=== PATIENT | female | born 1985 | race Caucasian/White ===

== ENCOUNTER → 2025-01-08 | Outpatient (CLI) | payer BC ==
[~2025-01-08] MED LIST: BCP'S; CYCL10 PO; DOCU100 PO; HYDACE5 PO; TRAZ50 PO; TRUVADA 200 MG1 EAC1 PO; Verotin-Gr Cap1 EACH PO
== END ==
LOC: LAB 08:33 → LAB SHORT 08:33 → PLD 08:33
DX: D39.0 Neoplasm of uncertain behavior of uterus (principal); N93.8 Other specified abnormal uterine and vaginal bleeding
CPT/HCPCS: 88305; 88312

== ENCOUNTER 2025-02-07 11:14 | Inpatient (IN) | payer BC ==
[~2025-02-07] VITALS: Ht 158 cm; Wt 78.6 kg
[2025-02-07] VITALS (20 sets, daily range): BP systolic 86–135; BP diastolic 62–87
[2025-02-07] MEDS ORDERED: Midazolam HCl 1MG / ML 2ML Vial ONE (11:15)
[2025-02-07] MEDS ORDERED: propofoL 20 ML IV ONE (11:15)
[2025-02-07] MEDS ORDERED: FentaNYL Citrate 50 MCG/ML 2 ML Injection ONE ×2 (11:15→14:29)
[2025-02-07] MEDS ORDERED: Lactated Ringer's 1,000 ML IV SCH ×2 (11:20→14:10)
[2025-02-07] MEDS ORDERED: CeFAZolin Sodium 2,000 MG in NS 100 ML IV SCH (11:20)
[2025-02-07] MEDS ORDERED: Ondansetron HCl 2 MG / ML 2ML Vial ONE (12:18)
[2025-02-07] MEDS ORDERED: Dexamethasone Sod Phos 10 MG/ML 1ML VIAL ONE (12:18)
--- NOTE | 2025-02-07 12:28 | NUR ---
02/07/25 1228 Sudarshan Rodriguez PLACED A 14FR SALES CATHETER INTO PATIENT IN A STERILE FASHON UNDER VERBAL ORDER OF DR. SHAH. SALES WILL STAY POSTOP. SUDARSHAN LOPEZ RN 02-07-25 @ [id number]
[2025-02-07] MEDS ORDERED: Ketamine HCl 100 MG / ML 5ML Vial ONE (12:38)
[2025-02-07] MEDS ORDERED: Rocuronium Bromide 10 MG/ML 5ML Injection IV ONE (12:39)
--- NOTE | 2025-02-07 12:50 | NUR ---
PT C/O ITCHING TO LEFT ARM AND SHOULDER, REDNESS NOTED TO LEFT SHOULDER, ANTIBIOTIC STOPPED AT THIS TIME. IV FLUIDS CONTINUE TO INFUSE. PT REPORTS THAT ITCHING SUBSIDED AFTER ANTIBIOTIC STOPPED. NO SOB OR DIFFICULTY BREATHING NOTED.
[2025-02-07] MEDS ORDERED: Ketorolac Tromethamine 30mg Vial ONE (13:38)
[2025-02-07] MEDS ORDERED: Sugammadex Sodium 200 MG/2ML SDV (100 MG/ML) ONE (13:38)
[2025-02-07] MEDS ORDERED: Ondansetron HCl 2 MG / ML 2ML Vial IV PRN (14:10)
[2025-02-07] MEDS ORDERED: OxyCODONE HCL 5 MG TAB PO PRN (14:10)
[2025-02-07] MEDS ORDERED: DiphenhydrAMINE HCL 25 MG Cap PO PRN (14:15)
[2025-02-07] MEDS ORDERED: Acetaminophen 325 MG TABLET PO PRN (14:15)
[2025-02-07] MEDS ORDERED: Ibuprofen 400 MG Tab PO PRN (14:15)
[2025-02-07] MEDS ORDERED: HYDROcodone 5-APAP 325 TAB PO PRN (14:15)
[2025-02-07] MEDS ORDERED: fentaNYL citrate 20 MCG/ML 30MLSYR IV PRN (14:20)
[2025-02-07] MEDS ORDERED: HYDROmorphone HCl/Pf 1MG SYR ONE ×2 (14:24→14:42)
[2025-02-07] MEDS ORDERED: Lactated Ringer's 1,000 ML IV ONE (14:29)
--- NOTE | 2025-02-07 15:43 | NUR ---
RETURNED EXCESS UNIT OF BLOOD TO BLOOD BANK. BLOOD BANK PLANS TO KEEP UNIT ON FILE FOR PT, IF NEEDED, FOR 72 HRS.
--- NOTE | 2025-02-07 16:34 | NUR ---
POST OP ARRIVAL TO UNIT AWAKE AND ALERT S/P FAM. TRANSVERSE ABD DRESSING WITH SMALL SPOTS OF SANGUINOUS. PT REPORTING 10/10 PAIN. ROXICODONE GIVEN AND THEN SHORTLY AFTER FENTANYL DESIGN DRAFTER SET UP PER ORDERS. KPAD TO ABD FOR COMFORT. MIRANDA SIPS OF WATER AND JELLO. POST OP VSS AND IN PROGRESS. SALES PATENT AND DRAINING YELLOW URINE. FAMILY AT BEDSIDE FOR SUPPORT. CALL LIGHT WITHIN REACH.
[2025-02-07] MEDS ORDERED: OxyCODONE 5 mg/Acetamin 325 mg TABLET PO PRN ×2 (16:50→22:05)
[2025-02-07] MEDS ORDERED: Ketorolac Tromethamine 30mg Vial IV SCH (18:00)
--- NOTE | 2025-02-07 18:21 | NUR ---
SHIFT SUMMARY NO ACUTE CHANGES SINCE POST OP. USING FENTANYL RADIOLOGY RN + TORADOL FOR PAIN CONTROL. CONT BIOX IN PLACE. VSS. MIRANDA REG DIET. TRANSVERSE ABD DRESSING REMAINS UNCHANGED. SALES PATENT WITH DARK YELLOW URINE. IVF INFUSING. AT BEDSIDE FOR SUPPORT. CALL LIGHT WITHIN REACH.
[2025-02-07] MEDS ORDERED: HYDROmorphone HCl/Pf 1MG SYR IV PRN (22:00)
[2025-02-08 04:58] VITALS: BP 107/67
--- NOTE | 2025-02-08 05:22 | NUR ---
SHIFT SUMMARY POD 1 S/P FAM. ABD INCISION DRESSING INTACT WITH SLIGHT INCREASED SHADOWING NOTED ON LEFT SIDE; HAS SCANT VAGINAL BLEEDING. ABD SOFT AND TENDER. PAIN MANAGED PER EMAR. A/OX4 WITH VSS. IV SL/PATENT. SALES TO GRAVITY DRAIN PER ORDER. MIRANDA SMALL AMOUNT OF PO INTAKE, DENIES N/V. AWAITING POST OP AMBULATION, PLAN FOR THIS MORNING PER PATIENT. PT RESTING IN BED WITH CALL LIGHT IN REACH. WILL GIVE REPORT TO ONCOMING RN.
[2025-02-08 05:29] LABS: BASOPHILS ABSOLUTE AUTO 0.01 K/mm3 (0.00-0.23); BASOPHILS PERCENT AUTO 0 % (0-2); EOSINOPHILS PERCENT AUTO 0 % (0-6); Hematocrit 29.7 % (33.0-51.0); Hemoglobin 10.2 g/dL (11.5-16.0); IMMATURE GRAN ABSOLUTE AUTO 0.02 K/mm3 (0.00-0.10); IMMATURE GRAN PERCENT AUTO 0 % (0-1); LYMPHOCYTES ABSOLUTE AUTO 1.14 K/mm3 (0.84-5.20); LYMPHOCYTES PERCENT AUTO 12 % (21-46); MONOCYTES PERCENT AUTO 8 % (4-13); Mean Corpuscular HGB 30.6 pg (26.0-34.0); Mean Corpuscular HGB Conc 34.3 g/dL (31.5-36.5); Mean Corpuscular Volume 89 fL (80-100); Mean Platelet Volume 9.7 fL (9.1-12.4); NEUTROPHILS ABSOLUTE AUTO 7.37 K/mm3 (1.96-9.15); NEUTROPHILS PERCENT AUTO 80 % (41-73); Platelet Count 196 K/mm3 (150-400); RDW Coefficient Variation 12.7 % (11.7-14.2); RDW Standard Deviation 41.4 fL (35.1-46.3); Red Blood Cell Count 3.33 M/mm3 (3.80-5.20); White Blood Cell Count 9.24 K/mm3 (4.00-11.30)
[2025-02-08 07:47] VITALS: BP 106/68
--- NOTE | 2025-02-08 09:50 | NUR ---
Pt. is awake and sitting up in a chair. 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 Facilitated an update and a life review. Listen with interest and empathy. Prayed with the Pt. Pt. verbalized gratitude for the spiritual care visit.
--- NOTE | 2025-02-08 12:11 | NUR ---
MORNING NOTE THIS RN ASSUMED CARE AT APPROX 0715. PATIENT ALERT AND ORIENTED X4. INDEPENDENT IN ROOM. COMMUNICATES NEEDS EFFECTIVELY. FAMILY AT BEDSIDE. VSS. POD 1 TOTAL ABD HYSTER. TRANSVERSE ABD INCISION W/ MEDIPORE DRESSING - MINIMAL SEROSANGUINOUS DRAINAGE. MANAGING PAIN PER EMAR AND WITH KPAD. SALES CATHETER REMOVED THIS MORNING - AWAITING SPONTANEOUS VOID. REPORTS DECREASING MINIMAL VAGINAL BLEEDING. TOLERATING PO INTAKE. CALL LIGHT IN REACH.
[2025-02-08 15:15] VITALS: BP 100/55
--- NOTE | 2025-02-08 16:47 | NUR ---
SHIFT SUMMARY NO ACUTE CHANGES SINCE MORNING NOTE. PATIENT REMAINS ALERT AND ORIENTED X4. COMMUNICATING NEEDS EFFECTIVELY. INDEPENDENT IN ROOM AND WITH ADLs. BP SOFT - SBP 100s. MAP >65. ASYMPTOMATIC. REMAINS ON ROOM AIR, SATs >90%. POD 1 TOTAL ABD HYSTER. MEDIPORE DRESSING OVER TRANSVERSE ABD INCISION WNL - NO CHANGES FROM PREVIOUS DOCUMENTATION. REPORTS MINIMAL VAGINAL BLEEDING. TOLERATING PO INTAKE. X1 VOID SINCE SALES REMOVAL. MANAGING PAIN PER EMAR AND WITH KPAD. MULTIPLE VISITORS AT BEDSIDE THROUGHOUT DAY. CALL LIGHT IN REACH.
[2025-02-08 19:27] VITALS: BP 123/77
[2025-02-09 04:10] VITALS: BP 113/75
--- NOTE | 2025-02-09 04:56 | NUR ---
NON ACOUSTIC OPERATOR SUMMARY NO ACUTE CHANGES NOTED THIS SHIFT. PT AAOX4 AND PLEASANT, INDEPENDENT IN ROOM. LOWER ABD PAIN HAS BEEN WELL CONTROLLED WITH PRN PERCOCET 2 TABS. MEDIPORE DRESSING TO LOWER ABD C/D/I ASIDE FROM A SMALL AREA OF OLD SHADOWING ON THE LEFT SIDE. PT CONTINUES TO VOID POST SALES REMOVAL, URINE WITH A SLIGHT PINK TINGE. PT REPORTS BLEEDING CONTINUES TO DECREASE. VSS, WILL CONTINUE TO MONITOR.
[2025-02-09 08:28] VITALS: BP 127/85
[2025-02-09] MEDS ORDERED: Percocet 5-3251 EACH PO (10:10)
[2025-02-09] MEDS ORDERED: IBU800 MG PO (10:11)
--- NOTE | 2025-02-09 10:32 | NUR ---
DISCHARGE NOTE PATIENT DC'D OFF UNIT AT APPROX 1030. WRITTEN AND VERBAL EDUCATION PROVIDED - PATIENT STATES UNDERSTANDING. PATIENT TRANSFERRED TO PERSONAL VEHICLE VIA WC. PERSONAL BELONGINGS WITH PATIENT.
== END 2025-02-09 10:28 | disposition home or self-care (01) | DRG 743 ==
LOC: SURS 11:14 → PRE IP 12:15 → SURS 15:41
PROVIDERS: ADMIT Obstetrics & Gynecology
DX: N85.8 Other specified noninflammatory disorders of uterus (principal); N93.8 Other specified abnormal uterine and vaginal bleeding; D63.8 Anemia in other chronic diseases classified elsewhere; Z98.890 Other specified postprocedural states
CPT/HCPCS: 36415; 85025; 86850; 86900; 86901; 86923; 88108; 88307; 94760; 94762; A9270; J0690; J1100; J1171; J1885; J2250; J2405; J2704; J3010; J7120; P9016